=== PATIENT | male | born 1940 | race Caucasian/White ===

== ENCOUNTER 2018-07-04 16:28 | Emergency (ER) | END 2018-07-04 17:12 | disposition home or self-care (01) ==

== ENCOUNTER 2018-07-06 20:37 | Emergency (ER) | END 2018-07-06 22:21 | disposition home or self-care (01) ==

== ENCOUNTER 2019-07-05 22:57 | Emergency (ER) | payer MEDICARE, OTHER ==
[~2019-07-05] VITALS: Ht 182.9 cm; Wt 79.6 kg
[~2019-07-05 22:57] MED LIST: ATEN50TA PO; CLIN300C10 PO; ENAL20TA PO; FLAX100013 PO; LEVO137T3 PO; METF-849 PO; MULT1TAB13 PO; SAW450CA7 PO; UBID50TA PO
[2019-07-05 23:00] VITALS: Ht 182.9 cm; Wt 79.6 kg
[2019-07-06 00:23] VITALS: BP 137/78; PULSE 75; RESP 18
[2019-07-06] MEDS ORDERED: CLINDAMYCIN 300 MG CAP PO ONE (00:30)
== END 2019-07-06 03:15 | disposition home or self-care (01) ==
LOC: E/R 22:57
DX: L03.115 Cellulitis of right lower limb (principal); I10 Essential (primary) hypertension; E11.9 Type 2 diabetes mellitus without complications; I25.2 Old myocardial infarction; Z79.84 Long term (current) use of oral hypoglycemic drugs
CPT/HCPCS: 99283